=== PATIENT | female | born 1970 | race Caucasian/White ===

== ENCOUNTER 2025-02-26 16:49 | Emergency (ER) | payer OTHER, SELFPAY ==
--- NOTE | ~2025-02-26 | XR_ITS ---
EXAMINATION: XR humerus LT DATE: 02/26/2025 17:39 INDICATION: Left humeral pain post fall TECHNIQUE: AP and lateral views of the left humerus were obtained. COMPARISON: None. FINDINGS: Bone alignment is normal. No fracture. Mild chondrocalcinosis and mild to moderate osteoarthritis at the left acromioclavicular joint. The left glenohumeral and elbow joint spaces appear relatively preserved. Soft tissues are unremarkable. Visualized portion of the left lung are clear with no pleural effusion. IMPRESSION: 1. No acute osseous abnormality. 2. Chondrocalcinosis and mild to moderate left acromioclavicular osteoarthritis Reviewed, dictated and finalized at location A.
[2025-02-26 17:03] VITALS: BP 118/79; PULSE 83; RESP 18; TEMP 36.6; O2SAT 100
--- NOTE | 2025-02-26 17:27 | ED_ITS ---
HPI - Extremity Injury (Upper) General Chief Complaint: Extremity Injury, Upper Stated Complaint: Left Shoulder/Arm Pain Time Seen by Provider: 02/26/25 17:27 Source: patient Mode of arrival: ambulatory Limitations: no limitations History of Present Illness HPI narrative: 54 yo F presents with pain to L upper arm. Tripped on ripped carpet yesterday and fell forward onto L arm. Also has abrasion to R wrist. Decreased ROM due to pain, distal NV intact. All systems reviewed and negative except as noted above. Related Data Home Medications ?Medication ?Instructions ?Recorded ?Confirmed ?Last Taken ?Type allopurinol 100 mg tablet mg 02/26/25 Unknown History bictegravir 50 mg-emtricitabine tablet PO 02/26/25 Un known History 200 mg-tenofovir alafenam 25 mg tablet (Biktarvy) bupropion HCl 150 mg 24 hr tablet, mg PO 02/26/25 Unk nown History extended release celecoxib 200 mg capsule mg 02/26/25 Unknown History metoprolol tartrate 25 mg tablet mg 02/26/25 Unknown History rivaroxaban 20 mg tablet (Xarelto) mg 02/26/25 Unknow n History Allergies Allergy/AdvReac Type Severity Reaction Status Date / Time latex Allergy Rash Verified 02/26/25 17:15 prednisone Allergy Rash Verified 02/26/25 17:15 PMFSH Comments At time of signature, agree with nursing past medical, surgical, social and family history. There is no relevant family history pertinent to the presenting complaint. Exam Narrative: GENERAL: This is a well-nourished, well-developed patient, in no apparent distress. HEAD: normocephalic, atraumatic. EYES: PERRL. Sclera clear/white. Vision is grossly intact. EARS: External ears normal NOSE: External nose normal NECK: Neck supple, non-tender without lymphadenopathy, masses or thyromegaly. CARDIOVASCULAR: Regular rate and rhythm without murmurs, gallops, or rubs. RESPIRATORY: Clear to auscultation. Breath sounds equal bilaterally. No wheezes, rales, or rhonchi. SKIN: warm, Dry, intact with no suspicious lesions or rash, good texture and turgor. NEURO: awake, alert, and oriented to person, place and time. There were no obvious focal neurologic abnormalities. EXTREMITIES: tender to proximal and distal aspect L humerus without deformity. unable to evaluate swelling due to body habitus. ROM decreased due to pain. Course Course Level of Care: Express Care Visit Vital Signs Vital signs: Vital Signs Temperature 36.6 C 02/26/25 17:03 Pulse Rate 83 02/26/25 17:03 Respiratory Rate 18 02/26/25 17:03 Blood Pressure 118/79 02/26/25 17:03 Pulse Oximetry 100 02/26/25 17:03 Oxygen Delivery Room Air 02/26/25 17:03 Temperature 36.6 C 02/26/25 17:03 Pulse Rate 83 02/26/25 17:03 Respiratory Rate 18 02/26/25 17:03 Blood Pressure 118/79 02/26/25 17:03 Pulse Oximetry 100 02/26/25 17:03 Oxygen Delivery Room Air 02/26/25 17:03 reviewed MDM - Extremity Injury (Upper) MDM Narrative Medical decision making narrative: Xray of left humerus negative for fracture. Discussed results with patient. Patient placed in sling. Recommend [id number] medications to treat pain. Recommend follow-up with primary care physician if pain and range of motion not improving. Differential Diagnosis Differential diagnosis: Likely other ( Humerus fracture, shoulder sprain, left upper arm sprain) Imaging Data My impression: agree with radiologist Radiologist's impression: EXAMINATION: XR humerus LT DATE: 02/26/2025 17:39 INDICATION: Left humeral pain post fall TECHNIQUE: AP and lateral views of the left humerus were obtained. COMPARISON: None. FINDINGS: Bone alignment is normal. No fracture. Mild chondrocalcinosis and mild to moderate osteoarthritis at the left acromioclavicular joint. The left glenohumeral and elbow joint spaces appear relatively preserved. Soft tissues are unremarkable. Visualized portion of the left lung are clear with no pleural effusion. IMPRESSION: 1. No acute osseous abnormality. 2. Chondrocalcinosis and mild to moderate left acromioclavicular osteoarthritis Discharge Plan Discharge Clinical Impression: Sprain of left upper arm Qualifiers: Encounter type: initial encounter Qualified Code(s): S53.402A - Unspecified sprain of left elbow, initial encounter Patient Disposition: Home Condition: Stable Instructions: Shoulder Sprain (ED) Additional Instructions: the x-ray of your left humerus bone was negative for fracture. Take ibuprofen or Tylenol every 6-8 hours as needed for pain. Wear sling for comfort. If pain not improving in the next 2-3 weeks follow-up with your primary care physician for further evaluation. Patient Language: Tuvaluan Prescriptions: No Action celecoxib 200 mg capsule allopurinol 100 mg tablet bupropion HCl 150 mg tablet extended release 24 hr PO metoprolol tartrate 25 mg tablet Xarelto 20 mg tablet Biktarvy 50-200-25 mg tablet PO Follow-up/Referrals: Yaneth,Estrada Morton MD [Primary Care Provider, Unknown] Time of Disposition: 19:33
== END 2025-02-26 19:46 | disposition home or self-care (01) ==
PROVIDERS: Emergency Provider Nurse Practitioner Family; PCP Internal Medicine
DX: S53.402A Unspecified sprain of left elbow, initial encounter (principal); W18.09XA Striking against other object with subsequent fall, initial encounter; Z21 Asymptomatic human immunodeficiency virus [HIV] infection status; Z86.2 Personal history of diseases of the blood and blood-forming organs and certain disorders involving the immune mechanism
CPT/HCPCS: 73060; 99203; A4565; G0463